=== PATIENT | female | born 2000 | race Caucasian/White ===

== ENCOUNTER 2019-06-19 00:20 | Emergency (ER) | payer MEDICAID, SELFPAY ==
[2019-06-19 00:21] VITALS: BP 110/63; PULSE 79; RESP 18; TEMP 36.9; O2SAT 99; BMI 25.4
--- NOTE | 2019-06-19 00:37 | ED.VIS.GEN ---
History of Present Illness Chief Complaint: ETOH Intox Informant: Patient Onset: Today Narrative: Patient is a student at the [employer]. She reports drinking a half a bottle of vodka tonight. She developed nausea and vomiting in the bathroom and felt like she was going to pass out. She did not feel that she was stable enough to walk to the wellness center so she called 911. At this point she is sitting upright in bed, alert and cooperative. She still feels nauseated. Past Medical History - Allergies and Home Meds Allergies/Adverse Reactions: Allergies No Known Allergies Allergy (Verified 06/19/19 00:43) Primary Care Physician: Beulah Doctor,Out of [NON-STAFF] - Prior records reviewed: Yes Past Medical History: - - Reviewed Review of Systems General: Denies: Chills, Fever Eyes: Denies: Visual changes - bilaterally, - Cardiovascular: Denies: Chest pain Respiratory: Denies: Dyspnea Gastrointestinal: Reports: Nausea, Vomiting. Denies: Abdominal pain, Diarrhea Skin: Denies: Wounds Neurological: Denies: Headache Hematologic: Denies: Easy bruising Allergy: Denies: Uticaria Physical Exam Vital Signs/Narrative: Vital Signs Temp Pulse Resp BP Pulse Ox 06/19/19 00:21 98.4 F 79 18 110/63 99 Inital Vital Signs reviewed: Yes General: Well nourished, Well developed Head: Normocephalic ENT: Moist mucous membranes Neck: Supple Cardiovascular: Regular rate, Regular rhythm Respiratory: No distress, CTA bilaterally Abdomen: Soft, Nontender Extremities: Nontender, No edema Skin: Normal color Neurological: Alert, Oriented x3, - - No focal deficits. Psychological: Normal affect Diagnostic/Tx/Re-eval - Medical Decision Making Patient was given Zofran ODT. She had no further vomiting. She has been in the emergency room nearly 2 hours. She does feel improved at this time will be discharged back to the wellness center. ED Disposition - Plan for ED Patient: Disposition: Home or Assisted Living Diagnosis: Intoxication Instructions: Alcohol Intoxication Referrals: [facility] [GROUP OF PHYSICIANS] -
[2019-06-19 00:40] VITALS: BP 110/63; PULSE 79; RESP 18; TEMP 36.9; O2SAT 99; BMI 26.2
[2019-06-19] MEDS: Ondansetron ODT 4 MG Tablet PO (00:45)
--- NOTE | 2019-06-19 02:21 | ED.RN ---
REPORT CALLED TO TRISTEN AT [facility].
[2019-06-19 02:31] VITALS: BP 97/70; PULSE 68; RESP 20; O2SAT 100
== END 2019-06-19 02:32 | disposition home or self-care (01) ==
PROVIDERS: Emergency Provider Emergency Medicine
DX: F10.129 Alcohol abuse with intoxication, unspecified (principal); Y90.9 Presence of alcohol in blood, level not specified
CPT/HCPCS: 99285